=== PATIENT | male | born 1955 | race Caucasian/White ===

== ENCOUNTER 2018-02-14 07:48 | Day surgery (SDC) | payer MEDICARE, OTHER ==
[2018-02-09 18:08] VITALS: BMI 30.2
[~2018-02-14 07:48] MED LIST: LACTATED RINGERS 1,000 ML IV SCH; ONDANSETRON 4 MG/2 ML VIAL IVP PRN
[2018-02-14] MEDS: LIDOCAINE 1% 20 ML VIAL (10MG/ML) FOR IV START INTRADERMA PRN ×2 (08:30→08:47)
[2018-02-14] MEDS: FLURBIPROFEN 0.03% OPHTH DROPS 2.5 ML BTL OP ONE ×3 (08:38→08:50)
[2018-02-14] MEDS: CYCLOPENTOLATE 1% OPHTH SOLN 2 ML BTL OP ONE ×3 (08:40→08:52)
[2018-02-14 08:41] VITALS: TEMP 97.4
[2018-02-14 08:42] LABS: Glucose,Whole Blood 181 mg/dL (75-99)
[2018-02-14] MEDS: PHENYLEPHRINE 10% OPHTH DROPS 5 ML BTL OP ONE ×3 (08:42→08:54)
[2018-02-14] MEDS ORDERED: PROPOFOL 10 MG/ML 20 ML VIAL IV ONE (09:17)
[2018-02-14] MEDS ORDERED: TIMOLOL 0.5% OPHTH SOLN (PF) 0.2 ML DROPERETTE LEFT EYE ONE (09:28)
[2018-02-14] MEDS ORDERED: BALANCED SALT IRRIG SOLN COMB2 15 ML IRRIG.SOLN INTRAOCULA ONE (09:28)
[2018-02-14] MEDS ORDERED: HYALURONATE SODIUM INTRAOCULAR 1 EACH SYRINGE (10MG/ML) INTRAOCULA ONE (09:28)
[2018-02-14] MEDS ORDERED: EPINEPHrine (PF) 0.5 ML in BALANCED SALT IRRIG SOLN COMB2 500 ML IRRIGATION ONE (09:30)
--- NOTE | 2018-02-14 09:43 | P.OP ---
Date of Procedure: 02/14/18 Procedure(s) Performed: PREOPERATIVE DIAGNOSIS: Cataract, left eye. POSTOPERATIVE DIAGNOSIS: Cataract, left eye. OPERATION: Phacoemulsification cataract, left eye. DESCRIPTION OF PROCEDURE: The patient was taken to the preoperative holding area. Intravenous Propofol was given so as to bring about adequate sedation. The following mixture was given for local anesthesia: 5 mL of 2% lidocaine, 5 mL of 0.75% Marcaine, and 1 mL of Wydase. Approximately 4 mL was injected in the retrobulbar space of the surgical eye. Additional 1 mL was then directed to the temporal area of the surgical eye. This was performed to allow adequate neurological block of the facial muscles. The patient was revived and then taken into the operative room. The patient was prepped and draped in the usual sterile manner for the operative eye. A lid speculum was put into position. The conjunctiva was resected back from the limbus in the 12 o'clock position. Bleeding was controlled with electrocautery. A #69 blade was then used and a half-thickness scleral incision approximately 1-mm posterior to the limbus was made on bare sclera. This was shelved in the clear cornea using a crescent knife. Next a 15-degree blade was used to make a stab incision at the 3 o' clock position at the corneolimbal interface. Keratome blade was then used and the superior wound was extended into the anterior chamber. Viscoelastic was injected into the anterior chamber and to maintain its form. Next, a cystotome was used and a continuous anterior capsulotomy was made without difficulty. Hydrodissection using a blunt cannula and BSS was performed. Phaco probe was then employed and a groove extending from 12 to 6 o'clock in the lens was created. A Eric wand was used through the stab incision so as to perform a divide and conquer technique. Next an irrigation aspiration probe was utilized and any residual cortex was removed from the eye. Again, viscoelastic was injected into the anterior chamber. An Hosea posterior chamber lens implant was placed in the cartridge and injected into the anterior chamber without difficulty. The SinGroupChargerey hook was utilized to spin the lens into position and this was again performed without any difficulty. The irrigation and aspiration probe was again employed and any residual viscoelastic was removed from the eye. Then BSS was injected into the limbal stab incision and the anterior chamber re-inflated. The conjunctiva was reapproximated using electrocautery. One drop of 0.25% Timoptic was placed over the corneal along with TobraDex ophthalmic ointment. Two sterile patches and a Lanza eye shield were taped into position. The patient was transported to the recovery room in stable condition. Pathology: none sent Condition: stable Disposition: same day
[2018-02-14 09:49] LABS: Glucose,Whole Blood 168 mg/dL (75-99)
[2018-02-14 10:05] VITALS: BP 122/65; PULSE 59; RESP 18
[2018-02-14] MEDS ORDERED: BUPIVACAINE (PF) 0.75% 5 ML, HYALURONIDASE, HUMAN RECOMB 150 UNIT, LIDOCAINE 2% (PF) 10... MISCELLANE ONE ×3 (23:00)
[2018-02-14] MEDS ORDERED: TIMOLOL 0.5% OPHTH DROPS 5 ML BTL OP ONE (23:00)
[2018-02-14] MEDS ORDERED: GENTAMICIN/PREDNISOL AC OPHTH OINT 3.5GM OPHTHALMIC ONE (23:00)
== END 2018-02-14 10:18 | disposition home or self-care (01) ==
LOC: OR 07:48
PROVIDERS: ATTEND Ophthalmology
DX: E11.36 Type 2 diabetes mellitus with diabetic cataract (principal); H35.53 Other dystrophies primarily involving the sensory retina; Z79.4 Long term (current) use of insulin; I10 Essential (primary) hypertension; E78.5 Hyperlipidemia, unspecified; R25.1 Tremor, unspecified; Z79.82 Long term (current) use of aspirin; Z79.899 Other long term (current) drug therapy
CPT/HCPCS: 66984; V2632; J3470; J2001; J0171; J2704

== ENCOUNTER → 2019-05-01 | Outpatient (CLI) | payer MEDICARE ==
--- NOTE | 2019-05-01 10:58 | XR ---
Right hip and right femur HISTORY: Right hip pain 2 views of the right hip, 2 views of the right femur on a total of 6 images submitted Bone mineralization, hip joint space and alignment are maintained. No fracture or dislocation. There is possible joint space loss at the right knee. Spurring present at the patellofemoral joint, no join t effusion. Suspect degenerative disc changes at the lower lumbar spine. Ossific density at the level of the lesser trochanter is well-corticated and not felt likely to be acute. Vascular calcifications are noted incidentally. IMPRESSION: Possible underlying arthropathy right knee. Possible degenerative disc disease lumbar spi ne.
== END | disposition home or self-care (01) ==
LOC: RADXRMAIN 09:29
PROVIDERS: ATTEND Family Medicine
DX: M25.551 Pain in right hip (principal)
CPT/HCPCS: 73502

== ENCOUNTER → 2021-05-08 | Outpatient (CLI) | payer MEDICARE ==
--- NOTE | 2021-05-08 13:05 | XR ---
EXAMINATION TYPE: XR abdomen acute w cxr DATE OF EXAM: 05/08/2021 COMPARISON: NONE HISTORY: 65-year-old male abdominal pain and constipation. TECHNIQUE: Supine, upright, and left side down lateral decubitus views of the abdomen are obtained. FINDINGS: Heart normal size. Aorta and pulmonary vasculature within normal limits. No consolidation or pleural effusion. Slight asymmetric elevation right hemidiaphragm, unchanged from 2015. Old healed left later al rib fracture forming. No evidence for free intraperitoneal air. No dilated small bowel or differential air-fluid levels. Moderate to large stool throughout most of the colon. Some mildly air dilated sigmoid colon noted at 6.7 cm wide. Multiple pelvic phleboliths. IMPRESSION: 1. Chest with chronic changes. No definite acute process. 2. No evidence for free air. 3. Nonspecific, overall nonobstructive bowel gas pattern. 4. Moderate to large burden. There is mild dilatation of the sigmoid colon up to 6.7 cm which may be transient. Radiographic follow-up as clinically indicated.
== END | disposition home or self-care (01) ==
LOC: RADXRMAIN 12:35
PROVIDERS: ATTEND Family Medicine
DX: K59.00 Constipation, unspecified (principal)
CPT/HCPCS: 74022

== ENCOUNTER 2021-05-10 01:05 | Emergency (ER) | payer MEDICARE ==
[2021-05-10 01:13] VITALS: TEMP 98.3
[2021-05-10 01:52] LABS: Basophils # (A) 0.1 k/uL (0-0.2); Basophils % (A) 1 %; Eosinophils # (A) 0.3 k/uL (0-0.7); Eosinophils % (A) 3 %; HCT 47.8 % (39.0-53.0); HGB 16.7 gm/dL (13.0-17.5); Lymphocytes # (A) 1.9 k/uL (1.0-4.8); Lymphocytes % (A) 17 %; MCH 32.3 pg (25.0-35.0); MCHC 34.9 g/dL (31.0-37.0); MCV 92.5 fL (80.0-100.0); Mean Platelet Volume 7.5; Monocytes # (A) 0.8 k/uL (0-1.0); Monocytes % (A) 7 %; Neutrophils % (A) 72 %; Platelet Count 266 k/uL (150-450); RBC 5.17 m/uL (4.30-5.90); WBC 11.2 k/uL (3.8-10.6)
[2021-05-10 02:14] LABS: ALT 24 U/L (4-49); AST 22 U/L (17-59); African American GFR (CKD) >90 (>60 ml/min/1.73 sqM); Albumin 4.3 g/dL (3.5-5.0); Alkaline Phosphatase 80 U/L (38-126); Amylase 72 U/L (30-110); Anion Gap 11 mmol/L; Blood Urea Nitrogen 15 mg/dL (9-20); Calcium 9.6 mg/dL (8.4-10.2); Carbon Dioxide 24 mmol/L (22-30); Chloride 97 mmol/L (98-107); Glucose 241 mg/dL (74-99); Lipase 773 U/L (23-300); Non-African American GFR(CKD) >90 (>60 ml/min/1.73 sqM); Potassium 4.3 mmol/L (3.5-5.1); Sodium 132 mmol/L (137-145); Total Bilirubin 0.7 mg/dL (0.2-1.3); Total Protein 7.1 g/dL (6.3-8.2)
--- NOTE | 2021-05-10 03:11 | ED ---
Abdominal Pain HPI - General Chief Complaint: Abdominal Pain Stated Complaint: ABD Pain Time Seen by Provider: 05/10/21 01:18 Source: patient Mode of arrival: ambulatory - Related Data Home Medications Medication Instructions Recorded Confirmed Aspirin 81 mg PO DAILY 06/06/15 02/14/18 Insulin Lispro [humaLOG] See Protocol SQ AC-TID 06/06/15 02/14/18 Lisinopril-Hctz 10-12.5 mg 1 tab PO QAM 06/06/15 02/14/18 [Zestoretic 10-12.5] Primidone [Mysoline] 50 mg PO BID 06/06/15 02/14/18 amLODIPine [Norvasc] 10 mg PO HS 06/06/15 02/14/18 Calcium Carbonate/Vitamin D3 2 tab PO DAILY 02/09/18 02/14/18 [Calcium 500-Vit D3 200 Tablet] Gabapentin [Neurontin] 100 mg PO TID 02/09/18 02/14/18 Insulin Detemir (Levemir) [Levemir] 40 mg INJ BID 02/09/18 02/14/18 Pravastatin Sodium [Pravachol] 20 mg PO HS 02/09/18 02/14/18 diphenhydrAMINE [Benadryl] 25 mg PO HS PRN 02/09/18 02/14/18 metFORMIN HCL [Glucophage] 1,000 mg PO BID 02/09/18 02/14/18 Allergies Allergy/AdvReac Type Severity Reaction Status Date / Time glimepiride AdvReac Nausea & Verified 05/10/21 01:13 Vomiting Review of Systems ROS Statement: Those systems with pertinent positive or pertinent negative responses have been documented in the HPI. ROS Other: All systems not noted in ROS Statement are negative. Past Medical History Past Medical History: Diabetes Mellitus, Eye Disorder, Hyperlipidemia, Hypertension Additional Past Medical History / Comment(s): ITCHY PATCHS ON BOTH LEG. HAND TREMORS. NEUROPATHY., BILAL CATARACTS History of Any Multi-Drug Resistant Organisms: None Reported Past Surgical History: Orthopedic Surgery Additional Past Surgical History / Comment(s): LEFT CARPAL TUNNEL SX. COLONOSCOPY Past Anesthesia/Blood Transfusion Reactions: No Reported Reaction Additional Past Anesthesia/Blood Transfusion Reaction / Comment(s): NEVER HAD ANESTHESIA. Past Psychological History: No Psychological Hx Reported Smoking Status: Never smoker Past Alcohol Use History: None Reported Past Drug Use History: None Reported - Past Family History Mother Family Medical History: No Reported History Course Vital Signs 05/10/21 01:09 Temperature 98.3 F Pulse Rate 118 H Respiratory 22 Rate Blood Pressure 123/72 O2 Sat by Pulse 98 Oximetry Medical Decision Making - Lab Data Result diagrams: 05/10/21 01:40 05/10/21 01:40 Lab Results 05/10/21 05/10/21 Range/Units 01:40 01:40 WBC 11.2 H (3.8-10.6) k/uL RBC 5.17 (4.30-5.90) m/uL Hgb 16.7 (13.0-17.5) gm/dL Hct 47.8 (39.0-53.0) % MCV 92.5 (80.0-100.0) fL MCH 32.3 (25.0-35.0) pg MCHC 34.9 (31.0-37.0) g/dL RDW 13.0 (11.5-15.5) % Plt Count 266 (150-450) k/uL MPV 7.5 Neutrophils % 72 % Lymphocytes % 17 % Monocytes % 7 % Eosinophils % 3 % Basophils % 1 % Neutrophils # 8.0 H (1.3-7.7) k/uL Lymphocytes # 1.9 (1.0-4.8) k/uL Monocytes # 0.8 (0-1.0) k/uL Eosinophils # 0.3 (0-0.7) k/uL Basophils # 0.1 (0-0.2) k/uL Sodium 132 L (137-145) mmol/L Potassium 4.3 (3.5-5.1) mmol/L Chloride 97 L (98-107) mmol/L Carbon Dioxide 24 (22-30) mmol/L Anion Gap 11 mmol/L BUN 15 (9-20) mg/dL Creatinine 0.77 (0.66-1.25) mg/dL Est GFR (CKD-EPI)AfAm >90 (>60 ml/min/1.73 sqM) Est GFR (CKD-EPI)NonAf >90 (>60 ml/min/1.73 sqM) Glucose 241 H (74-99) mg/dL Calcium 9.6 (8.4-10.2) mg/dL Total Bilirubin 0.7 (0.2-1.3) mg/dL AST 22 (17-59) U/L ALT 24 (4-49) U/L Alkaline Phosphatase 80 (38-126) U/L Total Protein 7.1 (6.3-8.2) g/dL Albumin 4.3 (3.5-5.0) g/dL Amylase 72 (30-110) U/L Lipase 773 H (23-300) U/L Disposition Clinical Impression: Abdominal pain, Constipation Disposition: HOME SELF-CARE Condition: Good Instructions (If sedation given, give patient instructions): Abdominal Pain (ED), Constipation (ED) Is patient prescribed a controlled substance at d/c from ED?: No Referrals: Ina Muir MD [Primary Care Provider] - 1-2 days
[2021-05-10 03:30] LABS: Appearance,Urine Clear (Clear); Bilirubin,Urine Negative (Negative); Blood,Urine Negative (Negative); Color,Urine Yellow; Glucose,Urine (UA) 1+ (Negative); Leukocyte Esterase,Urine Negative (Negative); Nitrite,Urine Negative (Negative); PH, Urine 5.5 (5.0-8.0); Protein,Urine Trace (Negative); Specific Gravity,Urine 1.013 (1.001-1.035); Urobilinogen,Urine <2.0 mg/dL (<2.0)
[2021-05-10 03:36] LABS: Ketones,Urine 2+ (Negative)
[2021-05-10] MEDS ORDERED: MAGNESIUM CITRATE 296 ML BOTTLE PO ONE (03:55)
[2021-05-10 04:01] VITALS: BP 131/77; PULSE 94; RESP 20
== END 2021-05-10 04:01 | disposition home or self-care (01) ==
LOC: EC 01:05
DX: K59.00 Constipation, unspecified (principal); E11.9 Type 2 diabetes mellitus without complications; E78.5 Hyperlipidemia, unspecified; I10 Essential (primary) hypertension; Z79.82 Long term (current) use of aspirin; Z79.4 Long term (current) use of insulin
CPT/HCPCS: 36415; 80053; 81003; 82150; 83690; 85025; 99284

== ENCOUNTER 2023-12-29 07:37 | Day surgery (SDC) | payer MEDICARE ==
[2023-12-29] MEDS: LACTATED RINGERS 1,000 ML IV SCH (07:53)
[2023-12-29 08:04] VITALS: RESP 18; TEMP 97.3
[2023-12-29 08:16] LABS: Glucose,Whole Blood 94 mg/dL (70-110)
[2023-12-29] MEDS ORDERED: PROPOFOL 10 MG/ML 20 ML VIAL IV ONE (09:09)
[2023-12-29] MEDS ORDERED: LIDOCAINE 1% INJ 10MG/ML (20 ML MDV) ONE (09:09)
--- NOTE | 2023-12-29 09:11 | P.GSHP ---
History of Present Illness H&P Date: 12/29/23 Chief Complaint: Screening colonoscopy This a 60-year-old male presents today for screening colonoscopy. Patient denies a significant GI complaints. Past Medical History Past Medical History: Diabetes Mellitus, Eye Disorder, Hyperlipidemia, Hypertension Additional Past Medical History / Comment(s): ITCHY PATCHES ON BOTH LEG. HAND TREMORS. NEUROPATHY., BILAL CATARACTS, supposed to get checked for sleep apnea History of Any Multi-Drug Resistant Organisms: None Reported Past Surgical History: Orthopedic Surgery Additional Past Surgical History / Comment(s): Lt. CTR, colonoscopy, bilat. cataract Past Anesthesia/Blood Transfusion Reactions: No Reported Reaction Additional Past Anesthesia/Blood Transfusion Reaction / Comment(s): never had general anesthesia Smoking Status: Never smoker - Past Family History Mother Family Medical History: No Reported History Medications and Allergies Home Medications Medication Instructions Recorded Confirmed Type Aspirin 81 mg PO DAILY 06/06/15 12/28/23 History Insulin Lispro [humaLOG] 10 units SQ AC-TID 06/06/15 12/28/23 History Lisinopril-Hctz 10-12.5 mg 1 tab PO QAM 06/06/15 12/28/23 History [Zestoretic 10-12.5] Primidone [Mysoline] 50 mg PO BID 06/06/15 12/28/23 History amLODIPine [Norvasc] 10 mg PO HS 06/06/15 12/28/23 History Calcium Carbonate/Vitamin D3 2 tab PO DAILY 02/09/18 12/29/23 History [Calcium 500-Vit D3 200 Tablet] Gabapentin [Neurontin] 100 mg PO TID 02/09/18 12/28/23 History Insulin Detemir (Levemir) [Levemir] 32 units INJ BID 02/09/18 12/28/23 History Pravastatin Sodium [Pravachol] 20 mg PO HS 02/09/18 12/28/23 History metFORMIN HCL [Glucophage] 1,000 mg PO BID 02/09/18 12/28/23 History Pioglitazone HCl 30 mg PO HS 12/28/23 12/28/23 History Allergies Allergy/AdvReac Type Severity Reaction Status Date / Time glimepiride AdvReac Nausea & Verified 12/29/23 08:00 Vomiting Surgical - Exam Vital Signs Temp Pulse Resp BP Pulse Ox 97.3 F L 65 18 117/68 97 12/29/23 08:03 12/29/23 08:03 12/29/23 08:03 12/29/23 08:03 12/29/23 08:03 - General well developed, well nourished, no distress - Eyes PERRL - ENT normal pinna - Neck no masses - Respiratory normal expansion - Cardiovascular Rhythm: regular - Abdomen Abdomen: soft, non tender Assessment and Plan Plan: We'll perform screening colonoscopy.
--- NOTE | 2023-12-29 09:25 | P.OP ---
Date of Procedure: 12/29/23 Preoperative Diagnosis: Screening colonoscopy Postoperative Diagnosis: Normal colon Procedure(s) Performed: Colonoscopy Anesthesia: MAC Surgeon: Jack Daley Pathology: none sent Condition: stable Disposition: PACU Description of Procedure: PROCEDURE: The patient was placed on the endoscopy table in the lateral position. Digital rectal examination was performed which revealed no abnormalities. The prostate was symmetrical without nodules. Flexible colonoscope was then placed in the patient's anus and passed throughout the entire colon. The ileocecal valve was visualized. The cecum, ascending, transverse, descending and sigmoid colon were normal. The rectum was normal as well. There were no masses, polyps or diverticula noted in the entire colon. SUMMARY OF FINDINGS: Normal colonoscopy.
[2023-12-29 09:31] LABS: Glucose,Whole Blood 94 mg/dL (70-110)
[2023-12-29 09:56] VITALS: BP 132/78; PULSE 78
== END 2023-12-29 10:11 | disposition home or self-care (01) ==
LOC: ORWHC2ENDO 07:37
PROVIDERS: ATTEND Surgery
DX: Z12.11 Encounter for screening for malignant neoplasm of colon (principal); I10 Essential (primary) hypertension; E78.5 Hyperlipidemia, unspecified; E11.40 Type 2 diabetes mellitus with diabetic neuropathy, unspecified; G62.9 Polyneuropathy, unspecified; Z98.41 Cataract extraction status, right eye; Z98.2 Presence of cerebrospinal fluid drainage device; Z98.890 Other specified postprocedural states; Z79.899 Other long term (current) drug therapy; Z79.82 Long term (current) use of aspirin; Z79.4 Long term (current) use of insulin; Z79.84 Long term (current) use of oral hypoglycemic drugs; Z88.6 Allergy status to analgesic agent
CPT/HCPCS: J2001; J2704; G0121

== ENCOUNTER → 2024-04-02 | Outpatient (CLI) | payer MEDICARE ==
--- NOTE | 2024-04-02 13:01 | CT ---
EXAMINATION TYPE: CT brain wo con CT DLP: 1061.5 mGycm, Automated exposure control for dose reduction was used. DATE OF EXAM: 04/02/2024 12:49 PM COMPARISON: None. CLINICAL INDICATION:Male, 68 years old with history of G25.0 essential tremor, uncontrollable tremors TECHNIQUE: Brain: Axial CT images of the brain were obtained with coronal and sagittal reformats created and rev iewed. Contrast used: None. Oral contrast used: None. FINDINGS: Brain: Extra-axial spaces: No abnormal extra-axial fluid collections. Ventricular system: Dilatation in proportion to cerebral atrophy. Cerebral parenchyma: Cerebral atrophy. No acute intraparenchymal hemorrhage or mass effect. The sweeney -white junction is well differentiated. Scattered hypoattenuating areas are seen within the white mat ter. Cerebellum: Unremarkable. Mass effect: No evidence of midline shift. Intracranial vasculature: Atherosclerotic calcifications of the intracranial vessels. Soft tissues: Normal. Calvarium/osseous structures: No depressed skull fracture. Paranasal sinuses and mastoid air cells: Mild scattered paranasal sinus disease. Visualized orbits: Bilateral aphakia IMPRESSION: 1. No acute intracranial process. 2. Nonspecific white matter changes, likely secondary to chronic small vessel ischemic disease.
== END | disposition home or self-care (01) ==
LOC: RADCTMAIN 12:29
PROVIDERS: ATTEND Psychiatry & Neurology Neurology
DX: G25.0 Essential tremor (principal); R90.82 White matter disease, unspecified
CPT/HCPCS: 70450

== ENCOUNTER → 2024-12-26 | Outpatient (CLI) | payer MEDICARE ==
--- NOTE | 2024-12-26 13:52 | US ---
EXAMINATION TYPE: US thyroid st tissue head/neck DATE OF EXAM: 12/26/2024 COMPARISON: NONE CLINICAL INDICATION: Male, 69 years old with history of R93.89 ABNORMAL FINDINGS ON DX IMAGING OF OTH BODY; Pt states CXR at Dr's office that possibly showed an abnormal thyroid TECHNIQUE: Grayscale and color Doppler imaging of the thyroid gland. FINDINGS: GLAND SIZE: Right Lobe: 2.7 x 1.3 x 1.1 cm Overall Parenchyma: heterogeneous Left Lobe: 3.7 x 1.4 x 1.4 cm Overall Parenchyma: heterogeneous Isthmus Thickness: 0.3 cm NODULES RIGHT: # of nodules measured on right: 0 LEFT: # of nodules measured on left: 0 ISTHMUS: # of nodules measured in the isthmus: 0 Bilateral neck scanned, no evidence of lymphadenopathy. Bilateral thyroid slightly heterogeneous, no definite nodules visualized, thyroid not enlarged. Heterogeneous small sized thyroid without suspicious focal nodules IMPRESSION: As above. Highest TI-RADS level nodule reported: 2017 ACR TI-RADS LEVEL: TI-RADS 1 - BENIGN: No FNA TI-RADS assessment score and recommendation for follow-up based on appropriate scoring and treatment protocols. TR3: If nodule size is ? 2.5 cm, FNA is recommended. If nodule size is ? 1.5 cm, follow-up imaging at 1, 3, and 5 years is recommended. TR4: If nodule size is ? 1.5 cm, FNA is recommended. If nodule size is ? 1.0 cm, follow-up imaging at 1, 2, 3, and 5 years is recommended. TR5: If nodule size is ? 1.0 cm, FNA is recommended. If nodule size is ? 0.5 cm, annual follow-up for up to 5 years is recommended. [email or web address] [facility], , 12/26/2024 1:49 PM
== END | disposition home or self-care (01) ==
LOC: RADUSWWP 13:09
PROVIDERS: ATTEND Family Medicine
DX: R93.89 Abnormal findings on diagnostic imaging of other specified body structures (principal); E04.2 Nontoxic multinodular goiter
CPT/HCPCS: 76536